=== PATIENT | male | born 1985 | race Caucasian/White ===

== ENCOUNTER 2017-11-22 09:05 | Emergency (ER) | payer OTHER ==
[~2017-11-22] VITALS: Ht 167.6 cm; Wt 68.0 kg
[~2017-11-22 09:05] MED LIST: OXYACE5T PO
== END 2017-11-22 10:38 | disposition home or self-care (01) ==
LOC: ER 09:05
DX: T63.441A Toxic effect of venom of bees, accidental (unintentional), initial encounter (principal); F17.200 Nicotine dependence, unspecified, uncomplicated; Z91.030 Bee allergy status
CPT/HCPCS: 36415; 96374; 96375; 99282-25; J2930; J3490